=== PATIENT | male | born 1985 | race Caucasian/White ===

== ENCOUNTER 2024-03-23 14:52 | Outpatient (CLI) | payer OTHER, SELFPAY ==
--- NOTE | 2024-03-23 14:58 | XRR_ITS ---
PROCEDURE INFORMATION: Exam: XR Lumbosacral Spine Exam date and time: 03/23/2024 3:04 PM Age: 38 years old Clinical indication: Low back pain; Patient HX: Sharp lower back pain; Additional info: Chronic lumbar back pain TECHNIQUE: Imaging protocol: Radiologic exam of the lumbosacral spine. Views: 2 or 3 views. COMPARISON: No relevant prior studies available. FINDINGS: Bones/joints: No acute fracture. Normal alignment. Multilevel [id number] degenerative disc disease of the mid and lower lumbar spine. Soft tissues: Unremarkable. XR/XR lumbar spine 2-3V* [id number] IMPRESSION: No acute findings. Ridj-wi-qihlrkba multilevel degenerative disc disease of the mid and lower lumbar spine.
== END 2024-03-23 14:53 | disposition home or self-care (01) ==
LOC: RAD 14:55
PROVIDERS: Visit Provider Family Medicine
DX: M51.36 Other intervertebral disc degeneration, lumbar region (principal)
CPT/HCPCS: 72100